=== PATIENT | female | born 1990 | race Caucasian/White ===

== ENCOUNTER 2016-09-13 21:03 | Emergency (ER) | payer OTHER ==
[~2016-09-13 21:03] MED LIST: COLACE100 MG PO; FEOSOL325 MG PO; MOTRIN600 MG PO; NORCO 5-325 TA1 EACH PO
== END 2016-09-13 22:56 | disposition home or self-care (01) ==
LOC: FER 21:03
DX: J00 Acute nasopharyngitis [common cold] (principal); B34.9 Viral infection, unspecified; Z88.5 Allergy status to narcotic agent
CPT/HCPCS: 87450; 87804; 87899; 99283